=== PATIENT | male | born 1940 | race Caucasian/White ===

== ENCOUNTER 2019-12-28 08:21 | Inpatient (IN) | payer MEDICARE, OTHER ==
[~2019-12-28] VITALS: Ht 185.4 cm; Wt 117.8 kg
[2019-12-28 10:25] LABS: BASOPHILS ABSOLUTE AUTO 0.01 K/mm3 (0.00-0.23); BASOPHILS PERCENT AUTO 0 % (0-2); EOSINOPHILS PERCENT AUTO 0 % (0-6); Hematocrit 35.1 % (37.0-53.0); Hemoglobin 11.8 g/dL (13.5-17.5); IMMATURE GRAN ABSOLUTE AUTO 0.03 K/mm3 (0.00-0.10); IMMATURE GRAN PERCENT AUTO 0 % (0-1); LYMPHOCYTES ABSOLUTE AUTO 1.07 K/mm3 (0.84-5.20); LYMPHOCYTES PERCENT AUTO 14 % (21-46); MONOCYTES ABSOLUTE AUTO 0.37 K/mm3 (0.16-1.47); MONOCYTES PERCENT AUTO 5 % (4-13); Mean Corpuscular HGB 32.2 pg (26.0-34.0); Mean Corpuscular HGB Conc 33.6 g/dL (31.5-36.5); Mean Corpuscular Volume 96 fL (80-100); Mean Platelet Volume 9.6 fL (9.1-12.4); NEUTROPHILS ABSOLUTE AUTO 6.12 K/mm3 (1.96-9.15); NEUTROPHILS PERCENT AUTO 81 % (41-73); Platelet Count 128 K/mm3 (150-400); RDW Coefficient Variation 12.8 % (11.7-14.2); RDW Standard Deviation 45.3 fL (35.1-46.3); Red Blood Cell Count 3.67 M/mm3 (4.30-5.90)
[2019-12-28 10:35] LABS: Source, Urine Voided
[2019-12-28 10:44] LABS: Alanine Aminotransfer (ALT/SGP 24 U/L (12-78); Albumin, Blood 3.2 g/dL (3.4-5.0); Albumin/Globulin Ratio 0.9 (0.8-1.8); Alk Phos 43 U/L (50-136); Anion Gap 6 mmol/L (6-16); Aspartate Aminotrans (AST/SGOT 41 U/L (12-37); Bilirubin, Total 0.3 mg/dL (0.1-1.0); Blood Urea Nitrogen 18 mg/dL (8-24); Bun/Creatinine Ratio 15.5 (12.0-20.0); CO2, Blood 28 mmol/L (21-32); Chloride, Blood 99 mmol/L (98-108); Creatinine, Blood 1.16 mg/dL (0.60-1.20); Globulin, Blood 3.6 g/dL (2.2-4.0); Glomerular Filtration Rate >60 (60-); Glucose, Blood 259 mg/dL (70-99); Potassium, Blood 4.3 mmol/L (3.5-5.5); Sodium, Blood 133 mmol/L (136-145); Total Protein, Blood 6.8 g/dL (6.4-8.2)
[2019-12-28 10:50] LABS: Appearance, Urine Clear (Clear); Bilirubin, Urine Neg (Neg); Blood, Urine 4+ (Neg); Color, Urine Yellow (P-Yellow); Glucose Qualitative, Urine 2+ (Neg); Ketones, Urine 1+ (Neg); Leukocyte Esterase, Urine 2+ (Neg); Nitrite, Urine Neg (Neg); Protein, Urine 2+ (Neg); Urobilinogen, Urine NORM (Normal)
[2019-12-28 11:10] LABS: Bacteria Mod /hpf; Squamous Epithelial Cells Rare /hpf (Few)
[2019-12-28] MEDS ORDERED: CLOP75 PO (12:48)
[2019-12-28] MEDS ORDERED: Isosorbide Mono30 MG PO (12:48)
[2019-12-28] MEDS ORDERED: METO50ER PO (12:48)
[2019-12-28] MEDS ORDERED: BENA20 PO (12:48)
[2019-12-28] MEDS ORDERED: SPIR25 PO (12:48)
[2019-12-28] MEDS ORDERED: Aspirin EC81 MG PO (17:04)
[2019-12-28] MEDS ORDERED: Novolog100 UNIT/1 SC (17:05)
[2019-12-28] MEDS ORDERED: ATOR40TA PO (17:05)
[2019-12-28] MEDS ORDERED: TRESIBA100 UNIT/1 SC (17:07)
--- NOTE | 2019-12-28 22:35 | NUR ---
ASSUMED CARE NOTE: ASSUMED CARE OF PT @ 2235, RECEVIED REPORT FROM [facility] L[facility] FROM [facility]. PT IS CURRENLTY ON 2L OF O2 VIA NC, WITH SPO2 ABOVE 90%. PT'S RR IS BETWEEN 35-40 BPM. PT STATES HE IS SOB. PT IS DIAPHORETIC. BLANKETS TAKEN OFF, FAN PLACED AT BED SIDE. NEW IV ACCESS INITIATED. PT IS IN ST WITH BBB, HR @ 114. PT IS HYPERTENSIVE. LUNG SOUNDS DIMINISHED T/O. PT IS CONFUSED AND GRABBING @ LINES/CORDS, AND ROLLS AROUND IN BED. IS UNABLE TO FOLLOW DIRECTIONS WELL. BED AT LOWEST LEVEL, BED ALARM ON, CALL LIGHT WITHIN REACH.
[2019-12-28 23:28] LABS: BASOPHILS ABSOLUTE AUTO 0.03 K/mm3 (0.00-0.23); BASOPHILS PERCENT AUTO 0 % (0-2); EOSINOPHILS PERCENT AUTO 0 % (0-6); Hemoglobin 11.3 g/dL (13.5-17.5); IMMATURE GRAN ABSOLUTE AUTO 0.08 K/mm3 (0.00-0.10); IMMATURE GRAN PERCENT AUTO 1 % (0-1); LYMPHOCYTES ABSOLUTE AUTO 1.95 K/mm3 (0.84-5.20); LYMPHOCYTES PERCENT AUTO 19 % (21-46); MONOCYTES ABSOLUTE AUTO 0.73 K/mm3 (0.16-1.47); MONOCYTES PERCENT AUTO 7 % (4-13); Mean Corpuscular HGB 31.4 pg (26.0-34.0); Mean Corpuscular HGB Conc 33.2 g/dL (31.5-36.5); Mean Corpuscular Volume 94 fL (80-100); NEUTROPHILS ABSOLUTE AUTO 7.74 K/mm3 (1.96-9.15); NEUTROPHILS PERCENT AUTO 74 % (41-73); Platelet Count 123 K/mm3 (150-400); RDW Coefficient Variation 12.8 % (11.7-14.2); RDW Standard Deviation 44.4 fL (35.1-46.3); White Blood Cell Count 10.53 K/mm3 (4.00-11.30)
[2019-12-28 23:35] LABS: Anion Gap 7 mmol/L (6-16); Blood Urea Nitrogen 21 mg/dL (8-24); Bun/Creatinine Ratio 17.8 (12.0-20.0); CO2, Blood 25 mmol/L (21-32); Calcium, Blood 7.5 mg/dL (8.5-10.1); Chloride, Blood 102 mmol/L (98-108); Creatinine, Blood 1.18 mg/dL (0.60-1.20); Glomerular Filtration Rate >60 (60-); Glucose, Blood 193 mg/dL (70-99); Potassium, Blood 4.9 mmol/L (3.5-5.5); Sodium, Blood 134 mmol/L (136-145)
--- NOTE | 2019-12-28 23:40 | NUR ---
NOTIFIED DR BANGURA OF CRITICAL LACTIC ACID OF 2.9, TEMP 101.4, BNP 565. INFORMED DR THAT BOLUS WAS STOPPED AT 250 MLS D/T ELEVATED BNP, AND INCREASED RESPIRATORY RATE 44. DR GAVE NEW ORDERS TO FOLLOW SEPSIS PROTOCOL WITH 3 LITER BOLUSES OF NS AND THEN MAINTENANCE RATE OF 150 MLS/HR.
--- NOTE | 2019-12-29 00:29 | NUR ---
TRANSFER NOTE CALLED RAPID RESPONSE DUE TO TACHYCARDIA, TACHYPNEA, AND AMS. ULTIMATELY THE DECISION WAS MADE TO TRANSFER THIS PT TO ICU 8. REPORT GIVEN TO ICU NURSE JAKE.
--- NOTE | 2019-12-29 00:45 | NUR ---
UPDATE: CALLED , REGARDING INCREASED NEED FOR OXYGEN, 10L OF O2 VIA OXYMIXER, SPO2 90%. EXP WHEEZE HEARD BILAT. ORDERS GIVEN FOR 40MG LASIX IV, AND TO STOP IV FLUIDS. ORDERS ALSO GIVEN TO INITIATE CPAP.
--- NOTE | 2019-12-29 01:44 | NUR ---
CHARGE NURSE CALLED TITO REGARDING PT'S INTOLERANCE TO CPAP. PT IS PULLING AT LINES, ATTEMPTING TO GET OUT OF BED AND REFUSING TO WEAR OXYMIZER. SPO2 SLOWING DECLINING. ORDERS GIVEN TO PLACE PT ON PRECEDEX. ONCE INTIATED WILL RESTART CPAP, OR POSSIBLE BIPAP. BED AT LOWEST LEVEL, BED ALARM ON.
--- NOTE | 2019-12-29 03:10 | NUR ---
UPDATE: PT HAS AN ELEVATED TEMP, ACETAMINOPHEN GIVEN PRN. PT NOW HAS A ISRAEL DRAINING CLEAR YELLOW URINE. PT DID NOT TOLERATE CPAP MACHINE, OXYMIZER ON 5L OF O2 SPO2 ABOVE 90%. PT CONTINUES TO ATTEMPT TO GET OUT OF BED. MAY HAVE TO USE MANDY VEST TO PREVENT INJURY.
[2019-12-29 03:14] LABS: BASOPHILS ABSOLUTE AUTO 0.01 K/mm3 (0.00-0.23); BASOPHILS PERCENT AUTO 0 % (0-2); EOSINOPHILS PERCENT AUTO 0 % (0-6); Hematocrit 31.9 % (37.0-53.0); Hemoglobin 10.8 g/dL (13.5-17.5); IMMATURE GRAN ABSOLUTE AUTO 0.04 K/mm3 (0.00-0.10); IMMATURE GRAN PERCENT AUTO 1 % (0-1); LYMPHOCYTES ABSOLUTE AUTO 0.79 K/mm3 (0.84-5.20); LYMPHOCYTES PERCENT AUTO 10 % (21-46); MONOCYTES ABSOLUTE AUTO 0.57 K/mm3 (0.16-1.47); MONOCYTES PERCENT AUTO 7 % (4-13); Mean Corpuscular HGB 32.2 pg (26.0-34.0); Mean Corpuscular HGB Conc 33.9 g/dL (31.5-36.5); Mean Corpuscular Volume 95 fL (80-100); NEUTROPHILS ABSOLUTE AUTO 6.66 K/mm3 (1.96-9.15); NEUTROPHILS PERCENT AUTO 83 % (41-73); Platelet Count 111 K/mm3 (150-400); RDW Coefficient Variation 12.6 % (11.7-14.2); RDW Standard Deviation 44.1 fL (35.1-46.3); Red Blood Cell Count 3.35 M/mm3 (4.30-5.90); White Blood Cell Count 8.07 K/mm3 (4.00-11.30)
[2019-12-29 03:25] LABS: Source, Urine Catheter
[2019-12-29 03:29] LABS: Bilirubin, Urine Neg (Neg); Blood, Urine Neg (Neg); Glucose Qualitative, Urine Neg (Neg); Ketones, Urine Neg (Neg); Leukocyte Esterase, Urine Neg (Neg); Nitrite, Urine Neg (Neg); Protein, Urine Neg (Neg); Urobilinogen, Urine NORM (Normal)
[2019-12-29 03:30] LABS: Albumin, Blood 2.8 g/dL (3.4-5.0); Albumin/Globulin Ratio 0.8 (0.8-1.8); Bilirubin, Total 0.4 mg/dL (0.1-1.0); Bun/Creatinine Ratio 17.2 (12.0-20.0); Calcium, Blood 7.3 mg/dL (8.5-10.1); Creatinine, Blood 1.28 mg/dL (0.60-1.20); Globulin, Blood 3.5 g/dL (2.2-4.0); Potassium, Blood 4.3 mmol/L (3.5-5.5); Total Protein, Blood 6.3 g/dL (6.4-8.2)
[2019-12-29 03:31] LABS: Appearance, Urine Clear (Clear); Color, Urine Pale Yellow (P-Yellow)
--- NOTE | 2019-12-29 04:07 | NUR ---
UPDATE: PRECEDEX TURNED DOWN TO 0.2MCG/KG/HR, DUE TO LOW BLOOD PRESSURE.
--- NOTE | 2019-12-29 05:11 | NUR ---
SHIFT SUMMARY: SEE PREVIOUS NOTES. PT REMAINS ALERT AND ORIENTED TO SELF. PT IS CONFUSED AND ON 0.2MCG/KG/HR OF PRECEDEX DUE TO CPAP/OXYMIZER INTOLERANCE. PT HAS BEEN ABLE TO KEEP MASK ON WITHOUT DIFFICULTY. SPO2 ABOVE 92%. LUNG SOUNDS DIM T/O. LEFT BBB NOTED HR IN THE 80'S. TEMP DECREASED TO 99.1, FAN STILL IN PLACE. ISRAEL PATNET DRAINING CLEAR YELLOW URINE. WAS UNABLE TO REACH FAMILY FOR MORE INFORMATION ON HOME STAUS. WILL PASS ON TO DAY SHIFT. WILL CONTIUNE TO MONITOR PT UNTIL REPORT IS GIVEN TO ONCOMING SHIFT.
--- NOTE | 2019-12-29 06:37 | NUR ---
CHARGE NURSE SPOKE TO PARTNER JOSE R. THEY HAVE BEEN TOGETHER FOR 9 YEARS, SHE IS THE MAIN CAREGIVER. SHE STATES THAT THE PATIENT WISHES TO BE DNR. STATING THAT [facility] HAS A COPY. ATTEMPTED TO CALL [facility] MEDICAL RECORDS. THEY NEED A SIGNED CONSENT OF RELEASE. JOSE R (PARTNER) STATED THAT THE PATINET HAS BEEN GETTING MORE CONFUSED OVER THE PAST WEEK. SHE WAS ENCOURAGED TO COME IN AND ANSWER QUESTIONS.
--- NOTE | 2019-12-29 08:15 | NUR ---
ASSUMED CARE: REPORT RECEIVED FROM BO Wheatley RN. ASSUMED CARE OF THIS PT AT APPROX 0700. ON ASSESSMENT, THE PT IS AWAKE, A&O. HE IS ANSWERING QUESTIONS & FOLLOWING DIRECTION APPROPRIATELY. LS ARE DIM T/O, PT CURRENTLY WEARING CPAP W/ O2 SATS > 92%. MONITOR SHOWS SR W/ HR 80s & OCC PVCs, BP W/ SLIGHT HYPOTENSION. PT HAS NO GI COMPLAINTS, STS HAVING NO APPETITE. TEMP ISRAEL PATENT/ DRAINING CLEAR YELLOW URINE. SKIN OVERALL CDI. WILL CONTINUE TO MONITOR & UPDATE NEEDED.
--- NOTE | 2019-12-29 09:00 | NUR ---
DR ARAYA: PROVIDER AT BEDSIDE TO SIN PT. WOULD LIKE CPAP REMOVED TO SEE HOW PT TOLERATES. PT PLACED ON 1OL OXYMIZER W/ O2 SATS > 92%, GOAL PER PROVIDER IS O2 SATS > 88%, TITRATE O2 DOWN PT TOLERATES. PT's SIGNIFICANT OTHER HAS EXPRESSED THAT PT IS DNR STATUS, PT IS AGREEABLE TO THIS & PROVIDER STS OKAY TO PLACE DNR ORDERS. PLAN FOR ECHO & F/U CXR THIS AM ALSO. WILL CONTINUE TO MONITOR & UPDATE NEEDED.
--- NOTE | 2019-12-29 11:58 | NUR ---
Echocardiogram using 0.60ml of Definity contrast performed.
--- NOTE | 2019-12-29 12:52 | NUR ---
CHANGE IN CONDITION: SHORTLY AFTER RECEIVING CONTRAST DURING ECHOCARDIOGRAM, PT BEGAN WHEEZING & HAVING C/O INCREASED SOB. HE REMAINED A&O x4 DURING THIS TIME. PT STATED HE WOULD LIKE TO EAT BEFORE PUTTING THE CPAP MASK ON, O2 SATS > 90% DURING THIS PERIOD OF TIME. PT SAT UPRIGHT IN BED & MEAL TRAY SET UP FOR HIM, THIS RN LEFT ROOM W/ PT SITTING UP & EATING MEAL. CALL FROM QI Higgins RT, REQUESTS THAT THIS RN COME TO PT's ROOM RIGHT AWAY. ON ENTERING THE ROOM, THE PT IS VISIBLY SHAKING & CORE TEMP IS INCREASED TO 102.2, PT IS NOW CONFUSED & PULLING AT LINES/ CORDS. O2 SATS DECREASED TO 87% DURING THIS TIME & SBP UP TO 190. ATTEMPTED TO PLACE CPAP AT PRIOR SETTINGS, PT NOT TOLERATING WELL & WILL NOT LEAVE CPAP IN PLACE. PRECEDEX RESTARTED & TITRATION DOC IN FLOWSHEET. BIPAP NOW AT BEDSIDE & INITIATED W/ SETTINGS 12/6 & 25% FIO2. PT CONTINUES PULLING AT MASK & TAKES APPROX 30 MINS TO SETTLE & TOLERATE BIPAP THERAPY. HE IS NOW RESTING QUIETLY. WILL CONTINUE TO MONITOR & UPDATE NEEDED.
--- NOTE | 2019-12-29 18:40 | NUR ---
SHIFT SUMMARY: SINCE PRIOR UPDATE PT IS NOW ONCE AGAIN A&O & TAKING BREAK FROM BIPAP. PRECEDEX DRIP CONTINUES. PT ON 10L HI-FLOW NC W/ O2 SATS > 90%. MONITOR SHOWS SR W/ BBB, HR 80-100s. NO GI COMPLAINTS, TEMP ISRAEL PATENT/ DRAINING, CORE TEMP IMPROVED SOMEWHAT. WILL CONTINUE TO MONITOR & UPDATE NEEDED.
--- NOTE | 2019-12-29 19:30 | NUR ---
ASSUMED CARE NOTE: ASSUMED CARE OF PT AT 1900, RECEVIED REPORT FROM TC VERMA. PT IS ALERT AND ORIENTEDX3. PT IS ABLE TO FOLLOW DIRECTIONS. PT ON 8L OF O2 VIA HIGH-FLOW NC WITH SPO2 ABOVE 90%. PT DENIES ANY SOB AT THIS TIME. PT ALSO DENIES PAIN. TEMP RUNNING @ 101.4, WILL GIVE PRN ACETAMINOPHEN. PT IS DIAPHORETIC, FAN ON IN ROOM. PT IS ON 0.2MCG/KG/HR OF PRECEDEX. SINUS RHYTHM WITH BBB HR IN THE 80'S. ISRAEL PATNET DRAINING CLEAR YELLOW URINE. WILL CONTINUE TO MONITOR PT T/O SHIFT. BED AT LOWEST LEVEL, CALL LIGHT WITHIN REACH.
[2019-12-29 19:53] LABS: Adenovirus Not Detected (NOT DETECT); Bordetella pertussis Not Detected (NOT DETECT); Chlamydophila pneumoniae Not Detected (NOT DETECT); Coronavirus 229E Not Detected (NOT DETECT); Coronavirus HKU1 Not Detected (NOT DETECT); Coronavirus NL63 Not Detected (NOT DETECT); Coronavirus OC43 Not Detected (NOT DETECT); Human Metapneumovirus Not Detected (NOT DETECT); Human Rhinovirus/Enterovirus Not Detected (NOT DETECT); Influenza A Not Detected (NOT DETECT); Influenza A/2009-H1 Not Detected (NOT DETECT); Influenza A/H1 Not Detected (NOT DETECT); Influenza A/H3 Not Detected (NOT DETECT); Influenza B Not Detected (NOT DETECT); Mycoplasma pneumoniae Not Detected (NOT DETECT); Parainfluenza Virus 1 Not Detected (NOT DETECT); Parainfluenza Virus 2 Not Detected (NOT DETECT); Parainfluenza Virus 3 Not Detected (NOT DETECT); Parainfluenza Virus 4 Not Detected (NOT DETECT); Respiratory Syncytial Virus Not Detected (NOT DETECT)
[2019-12-29 23:04] LABS: U Amphetamine Screen Not Detected; U Barbituate Screen Not Detected; U Benzodiazapine Screen Not Detected; U Buprenorphine Screen Not Detected; U Cannabinoids Screen Not Detected; U Cocaine Screen Not Detected; U Methadone Screen Not Detected; U Methamphetamine Screen Not Detected; U Opiates Screen Not Detected; U Oxycodone Screen Not Detected; U Propoxyphene Screen Not Detected
--- NOTE | 2019-12-30 02:30 | NUR ---
PRECEDEX ON SB DUE TO LOW BLOOD PRESSURE.
--- NOTE | 2019-12-30 06:32 | NUR ---
SHIFT SUMMARY: NO SIGNIFICANT CHANGES THIS SHIFT. PT REMAINS ALERT AND ORIENTEDX3, IS ABLE TO FOLLOW DIRECTIONS. PRECEDEX 0.2MCG/KG/HR HAS BEEN OFF SINCE 229, DUE TO LOW BP. PT WAS ABLE TO TOLERATE BIPAP T/O THE NIGHT, WITHOUT DIFFICULTIES. PT HAD A TEMP AT THE START OF SHIFT, WHICH RESOLVED WITH PRN ACETAMINOPHEN. PT CONTIUNES TO BE IN SR WITH BBB, HR IN THE 70'S. PT NEEDED TO BE ENCOURAGED TO TURN SELF, DURING THE NIGHT. BED AT LOWEST LEVEL, CALL LIGHT WITHIN REACH. WILL CONTINUE TO MONITOR PT UNTIL REPORT IS GIVEN TO ONCOMING SHIFT.
--- NOTE | 2019-12-30 08:00 | NUR ---
PT ASSESMENT PT ALERT AND ORIENT, VERY PLEASNT AND INTERACTIVE. DENIES POAIN FOLLOWS ALL COMMANDS AND MORALES. DECREASED NC TO 4L/MIN, WILL CONT TO WEAN O2 SATS ARE IN THE MID TO HIGH 90S. CLEAR AND DIM BILAT. TOLERATING PO INTAKE. DECLINED AM SS BUT VERY GOOD APPETITE. ROUND SOFT NON TENDER OBESE ABD. NO BM. UO ADEQUATE VIA ISRAEL CLEAR AND YELLOW OUTPUT. WILL CONT TO MONITOR
--- NOTE | 2019-12-30 16:00 | NUR ---
PT UPDATE PT REMAINS IN CHAIR, CALM AND COOPREATIVE AND DENIES PAIN. VSS, RA WITH SATS WNL, GOOD APPETITE, HYPERGLYCEMIC WITH MD ALBERTO AWARE. NO BM. UO ADEQUATE.
--- NOTE | 2019-12-30 19:01 | NUR ---
Initial spiritual care note: Each time I passed Mr. Rudolph's room, he motioned for me to enter. He became tearful when speaking about his past and his time in the . He has some deep emotional scars from this period in his life. He appeared to appreciate being heard and affirmed. He expressed great love for his . He is estranged from his children. Mr. Rudolph prides himself on his strength and independance. Remaining self-sufficient is a priority. He is not christian, but we had an easy rapport. I will remain available.
--- NOTE | 2019-12-30 19:30 | NUR ---
ASSUMED PT CARE FROM LUCI SALAZAR BEDSIDE REPORT GIVEN. PT UP IN CHAIR. ALERT AND ORIENTED AND ABLE TO MAKE NEEDS KNOWN. ISRAEL CATHETER PATENT AND DRAINING TO GRAVITY. PLANS ARE TO DISCHARGE HOME IN THE AM. PT HAS NO QUESTIONS OR CONCERNS AT THIS TIME. VERY PLEASANT AND COOPERATIVE WITH CARES.
--- NOTE | 2019-12-31 05:32 | NUR ---
END OF SHIFT SUMMARY NO SIGNIFICANT EVENTS T/O NIGHT. PT HAS BEEN PLEASANT AND COOPERATIVE WITH CARES. REQUESTED A MELATONIN AT 0430 D/T NOT BEING ABLE TO SLEEP AND HAVING "FLASHBACKS FROM [place]." PT RECEIVED 3MG OF MELATONIN PER DR. FRANCIS ORDER. PT DOESN'T ASK FOR MUCH AND IS ENCOURAGED TO MAKE HIS NEEDS KNOWN. PT CONCERNED ABOUT DISCHARGING HOME HE IS NOT UP AND WALKING LIKE HE WAS PRIOR TO COMING TO THE HOSPITAL. PT ENCOURAGED TO CONTINUE WORKING WITH PT/OT AND CONTINUE WALKING MUCH HE CAN TOLERATE TO STRENGTHEN HIS LEGS. PT STATES HE NEEDS A WALKER UPON DISCHARGE AND THAT HIS SPOUSE CAN PICK IT UP FOR HIM, BUT HE MAY NEED AN ORDER FOR ONE. WILL PASS ALONG TO DAY RN. WILL CONTINUE TO MONITOR UNTIL REPORT IS HANDED OFF TO DAY SHIFT RN.
--- NOTE | 2019-12-31 11:50 | NUR ---
PT ASSESMENT PT ALERT AND ORIENT, VERY PLEASNT AND INTERACTIVE. DENIES PAIN FOLLOWS ALL COMMANDS AND MORALES. RA SATS ARE IN THE MID TO HIGH 90S. CLEAR AND DIM BILAT. TOLERATING PO INTAKE. BLOOD SUGARS REMAINS ELEVATED AND MD AWARE, WILL ALTER INSULIN ADMIN DOSES, ABD ROUND SOFT NON TENDER OBESE. NO BM. UO ADEQUATE VIA ISRAEL, WILL D/C TODAY WILL CONT TO MONITOR
--- NOTE | 2019-12-31 16:12 | NUR ---
RECEIVED REPORT FROM RETREAD SUPERVISOR. PT RECEIVED TO ROOM AT 1550. PT LOYD A/O. TALKATIVE. SETTLED TO BED. CALL LITE IN REACH, BED IN LOW POSITION, CALL LITE IN REACH, CALLS APPROP
--- NOTE | 2019-12-31 16:39 | NUR ---
PT HAS BEEN PLEASANT SINCE ADMIT. NO C/O PAIN. WATCHING TV. TALKATIVE. NO OTHER CONCERNS AT THIS TIME. BED IN LOW POSITION, CALL LITE IN REACH, CALLS APPROP
--- NOTE | 2020-01-01 06:51 | NUR ---
SHIFT SUMMARY: BRISSA RESTED COMFORTABLY FOR THE MAJORITY OF THE NIGHT. HE DID GET UP TWICE DURING THE NIGHT AND WANTED TO WALK AROUND THE ROOM WITH HIS WALKER. HE WAS ENCOURAGED TO CALL STAFF BEFORE GETTING UP, BUT STATED THAT HE DID NOT NEED ANY HELP. HE WAS EDUCATED ON THE IMPORTANCE OF SAFETY. HE IS ABLE TO MAKE HIS NEEDS KNOWN, ALERT AND ORIENTED. HE IS ANXIOUS TO GO HOME. HE IS VERY CONCERNED ABOUT GETTING A LIST OF MEDICATIONS THAT HE HAS HAD DURING HIS HOSPITAL STAY. HE IS ALSO ASKING ABOUT THE PRESCRIPTION FOR THE FWW FOR HOME USE. HE AMBULATED WITH THE WALKER WITHOUT DIFFICULTY. HE IS TOLERATING PO INTAKE WELL. ISRAEL IN PLACE DRAINING YELLOW URINE, BAG OFF OF FLOOR. HE USES HIS CALL LIGHT APPROPRIATELY. WILL REPORT TO DAY SHIFT RN.
--- NOTE | 2020-01-01 07:15 | NUR ---
bedside report from previous RN Kenia, pt lying in bed, a/0 x 4, pleasant/cooperative, bed in lowest position, call light within reach, bed rails up x 2
--- NOTE | 2020-01-01 09:22 | NUR ---
OT IN WITH PATIENT
[2020-01-01] MEDS ORDERED: ALBU90OI INH (12:22)
[2020-01-01] MEDS ORDERED: AZIT250 PO (12:22)
[2020-01-01] MEDS ORDERED: ALBU2.5V5 (12:23)
[2020-01-01] MEDS ORDERED: Prednisone10 MG PO (12:23)
[2020-01-01] MEDS ORDERED: AIRDUO RESPICL1 EAC3 (12:25)
--- NOTE | 2020-01-01 14:44 | NUR ---
peripheral IV removed WNL. pt's here for transfer home. Pt and indicate understanding of discharge instructions, printed materials provided in discharge packet. pt's prescriptions faxed to [facility] approx [phone]. pt's transported pt's belongings to awaiting vehicle. pt transferred to vehicle via wheelchair
== END 2020-01-01 14:40 | disposition home or self-care (01) | DRG 871 ==
LOC: ER 08:21 → ICUE 17:33 → SURS 17:33 → MEDS 19:50 → ICUE 23:34 → SURS 12-31 15:45
PROVIDERS: Emergency Medicine; Hospitalist; Internal Medicine; Nurse Practitioner Acute Care; ADMIT Internal Medicine
DX: A41.9 Sepsis, unspecified organism (principal); J96.01 Acute respiratory failure with hypoxia; I21.A1 Myocardial infarction type 2; N39.0 Urinary tract infection, site not specified; J44.1 Chronic obstructive pulmonary disease with (acute) exacerbation; I50.22 Chronic systolic (congestive) heart failure; D64.9 Anemia, unspecified; D69.6 Thrombocytopenia, unspecified; E11.9 Type 2 diabetes mellitus without complications; I25.10 Atherosclerotic heart disease of native coronary artery without angina pectoris; R65.20 Severe sepsis without septic shock; I11.0 Hypertensive heart disease with heart failure; Z79.4 Long term (current) use of insulin
CPT/HCPCS: 0099U; 36415; 51702; 71045; 74177; 80048; 80053; 81001; 81003; 82947; 83036; 83605; 83735; 83880; 84484; 85025; 87040; 87086; 93005; 93010; 94640; 94660; 96361; 96365-59; 96366; 96367; 96375; 97110; 97116; 97162; 97165; 97530; 97535; 99285-25; A9270; A9270-GY; C8929; J0456; J0696; J1200; J1650; J1940; J2930; J3475; J7030; J7050; J7512; Q9957; Q9967

== ENCOUNTER 2023-12-29 12:29 | Inpatient (IN) | payer MEDICARE ==
[~2023-12-29] VITALS: Ht 188 cm; Wt 102.4 kg
[~2023-12-29 12:29] MED LIST: AIRDUO RESPICL1 EAC3; ALBU2.5V5; ALBU90OI INH; ATOR40TA PO; AZIT250 PO; Aspirin EC81 MG PO; BENA20 PO; CLOP75 PO; Isosorbide Mono30 MG PO; METO50ER PO; Novolog100 UNIT/1 SC; Prednisone10 MG PO; SPIR25 PO; TRESIBA100 UNIT/1 SC
[2023-12-29] MEDS ORDERED: Ondansetron HCl 2 MG / ML 2ML Vial ONE (13:22)
[2023-12-29 13:23] LABS: BASOPHILS ABSOLUTE AUTO 0.04 K/mm3 (0.00-0.23); BASOPHILS PERCENT AUTO 0 % (0-2); EOSINOPHILS ABSOLUTE AUTO 0.04 K/mm3 (0.00-0.68); EOSINOPHILS PERCENT AUTO 0 % (0-6); Hematocrit 38.9 % (37.0-53.0); Hemoglobin 13.4 g/dL (13.5-17.5); IMMATURE GRAN ABSOLUTE AUTO 0.07 K/mm3 (0.00-0.10); IMMATURE GRAN PERCENT AUTO 1 % (0-1); LYMPHOCYTES ABSOLUTE AUTO 1.55 K/mm3 (0.84-5.20); LYMPHOCYTES PERCENT AUTO 13 % (21-46); MONOCYTES ABSOLUTE AUTO 0.82 K/mm3 (0.16-1.47); MONOCYTES PERCENT AUTO 7 % (4-13); Mean Corpuscular HGB 31.3 pg (26.0-34.0); Mean Corpuscular HGB Conc 34.4 g/dL (31.5-36.5); Mean Corpuscular Volume 91 fL (80-100); Mean Platelet Volume 10.4 fL (9.1-12.4); NEUTROPHILS ABSOLUTE AUTO 9.87 K/mm3 (1.96-9.15); NEUTROPHILS PERCENT AUTO 80 % (41-73); Platelet Count 155 K/mm3 (150-400); RDW Coefficient Variation 13.3 % (11.7-14.2); RDW Standard Deviation 44.3 fL (35.1-46.3); Red Blood Cell Count 4.28 M/mm3 (4.30-5.90); White Blood Cell Count 12.39 K/mm3 (4.00-11.30)
[2023-12-29 13:28] LABS: Albumin, Blood 3.3 g/dL (3.4-5.0); Bilirubin, Total 0.6 mg/dL (0.1-1.0); Bun/Creatinine Ratio 22.2 (12.0-20.0); Calcium, Blood 8.5 mg/dL (8.5-10.1); Creatinine, Blood 1.94 mg/dL (0.60-1.20); Globulin, Blood 3.4 g/dL (2.2-4.0); Potassium, Blood 3.5 mmol/L (3.5-5.5); Total Protein, Blood 6.7 g/dL (6.4-8.2)
[2023-12-29] MEDS ORDERED: Ondansetron HCl 2 MG / ML 2ML Vial IV ONE (13:35)
[2023-12-29 13:51] LABS: International Normalized Ratio 1.08; Prothrombin Time Results 11.3 Sec (9.7-11.5)
[2023-12-29 15:20] LABS: Source, Urine Clean Catch
[2023-12-29 15:44] LABS: Appearance, Urine Hazy (Clear); Bilirubin, Urine Neg (Neg); Blood, Urine 5+ (Neg); Color, Urine Yellow (P-Yellow); Glucose Qualitative, Urine 4+ (Neg); Ketones, Urine 1+ (Neg); Leukocyte Esterase, Urine 3+ (Neg); Nitrite, Urine Neg (Neg); Protein, Urine 1+ (Neg); Urobilinogen, Urine NORM (Normal)
[2023-12-29] MEDS ORDERED: FLU VACC QS2023-24(6MOS UP)/PF 60 MCG/0.5 ML SYRINGE IM PRN (15:45)
[2023-12-29] MEDS ORDERED: Acetaminophen 650 MG Supp PR PRN (15:50)
[2023-12-29] MEDS ORDERED: Bisacodyl 10 MG Supp PR PRN (15:50)
[2023-12-29] MEDS ORDERED: Ipratropium/Albuterol SulF 2.5-0.5MG/3 ML Amp INH PRN (15:55)
[2023-12-29] MEDS ORDERED: Ondansetron 4 MG TAB PO PRN (15:55)
[2023-12-29] MEDS ORDERED: Magnesium Hydroxide Conc 10 ML UDC PO PRN (15:55)
[2023-12-29] MEDS ORDERED: TraZODone HCl 50 MG Tab PO PRN (15:55)
[2023-12-29] MEDS ORDERED: NS 500 ML IV ONE (16:00)
[2023-12-29 16:05] LABS: Bacteria Many /hpf; Squamous Epithelial Cells Few /hpf (Few); Transitional Epithelial Cells Rare /hpf (0-Rare); White Blood Cells, Urine 25-50 /hpf (0-5)
[2023-12-29 16:07] LABS: Mucus Light (0-Heavy)
[2023-12-29] MEDS ORDERED: Mometasone/Formoterol MDI 200/5 mcg 13 GM INH SCH (16:15)
[2023-12-29] MEDS ORDERED: CefTRIAXone Sodium 1,000 MG in NS 50 ML IV SCH (16:23)
[2023-12-29] MEDS ORDERED: Insulin Human Lispro 100 Units/ML 3ML Syringe SC SCH (16:30)
[2023-12-29 18:46] VITALS: BP 120/63
[2023-12-29 19:18] VITALS: BP 112/95
[2023-12-29] MEDS ORDERED: Lactobacil 2-S.Thermo-Bifido 1 1 Cap PO SCH (21:00)
[2023-12-29] MEDS ORDERED: Metoprolol Tartrate 25 MG Tab PO SCH (21:00)
[2023-12-30 04:48] LABS: BASOPHILS ABSOLUTE AUTO 0.05 K/mm3 (0.00-0.23); BASOPHILS PERCENT AUTO 1 % (0-2); EOSINOPHILS ABSOLUTE AUTO 0.15 K/mm3 (0.00-0.68); EOSINOPHILS PERCENT AUTO 2 % (0-6); Hematocrit 35.2 % (37.0-53.0); IMMATURE GRAN ABSOLUTE AUTO 0.04 K/mm3 (0.00-0.10); IMMATURE GRAN PERCENT AUTO 1 % (0-1); LYMPHOCYTES ABSOLUTE AUTO 1.75 K/mm3 (0.84-5.20); LYMPHOCYTES PERCENT AUTO 20 % (21-46); MONOCYTES ABSOLUTE AUTO 0.72 K/mm3 (0.16-1.47); MONOCYTES PERCENT AUTO 8 % (4-13); Mean Corpuscular HGB 31.3 pg (26.0-34.0); Mean Corpuscular HGB Conc 34.1 g/dL (31.5-36.5); Mean Corpuscular Volume 92 fL (80-100); Mean Platelet Volume 10.3 fL (9.1-12.4); NEUTROPHILS ABSOLUTE AUTO 6.11 K/mm3 (1.96-9.15); NEUTROPHILS PERCENT AUTO 69 % (41-73); Platelet Count 143 K/mm3 (150-400); RDW Coefficient Variation 13.3 % (11.7-14.2); RDW Standard Deviation 44.8 fL (35.1-46.3); Red Blood Cell Count 3.84 M/mm3 (4.30-5.90); White Blood Cell Count 8.82 K/mm3 (4.00-11.30)
[2023-12-30 05:11] LABS: Albumin, Blood 3.1 g/dL (3.4-5.0); Albumin/Globulin Ratio 1.1 (0.8-1.8); Bilirubin, Total 0.5 mg/dL (0.1-1.0); Bun/Creatinine Ratio 22.1 (12.0-20.0); Calcium, Blood 8.1 mg/dL (8.5-10.1); Creatinine, Blood 1.81 mg/dL (0.60-1.20); Globulin, Blood 2.7 g/dL (2.2-4.0); Potassium, Blood 3.1 mmol/L (3.5-5.5); Total Protein, Blood 5.8 g/dL (6.4-8.2)
[2023-12-30 05:47] VITALS: BP 105/79
[2023-12-30 07:22] VITALS: BP 111/69
[2023-12-30] MEDS ORDERED: NS 500 ML IV ONE ×2 (07:25→16:25)
[2023-12-30] MEDS ORDERED: Atorvastatin 40 MG Tab PO SCH (09:00)
[2023-12-30] MEDS ORDERED: Aspirin 81 MG Chew PO SCH (09:00)
[2023-12-30] MEDS ORDERED: Spironolactone 25 MG Tab PO SCH (09:00)
[2023-12-30] MEDS ORDERED: Famotidine 20 MG Tab PO SCH (09:00)
[2023-12-30] MEDS ORDERED: Spironolactone 12.5 MG TAB PO SCH (09:00)
[2023-12-30] MEDS ORDERED: Enoxaparin 40 MG/0.4 ML SYR SC SCH (09:00)
[2023-12-30] MEDS ORDERED: Clopidogrel Bisulfate 75 MG Tab PO SCH (09:00)
[2023-12-30] MEDS ORDERED: Insulin Glargine-Yfgn 100 Unit/mL 3 ML SYR SC SCH (09:00)
[2023-12-30] MEDS ORDERED: Potassium Chloride 20 MEQ TabCR PO ONE (15:00)
[2023-12-30] MEDS ORDERED: AMIODARONE HCL100 M3 PO (15:17)
[2023-12-30] MEDS ORDERED: ALLO100 PO (15:17)
[2023-12-30] MEDS ORDERED: CALC.25 PO (15:18)
[2023-12-30] MEDS ORDERED: JARDIANCE10 MG PO (15:19)
[2023-12-30] MEDS ORDERED: FINA5 PO (15:20)
[2023-12-30] MEDS ORDERED: FURO20 PO (15:21)
[2023-12-30] MEDS ORDERED: NITR.4SL SL (15:23)
[2023-12-30] MEDS ORDERED: NOVOLOG FL100 UNIT/3 SC (15:24)
[2023-12-30] MEDS ORDERED: MIRALAX17 GM PO (15:24)
[2023-12-30] MEDS ORDERED: POTCHL20ER PO (15:25)
[2023-12-30] MEDS ORDERED: FLOMAX0.4 MG PO (15:26)
[2023-12-30] MEDS ORDERED: OZEMPIC2 MG/0.75 SC (15:26)
[2023-12-30] MEDS ORDERED: XARELTO2.5 M1 PO (15:28)
[2023-12-30] MEDS ORDERED: TRESIBA FL100 UNIT/2 SC (15:31)
[2023-12-30 16:06] VITALS: BP 122/74
--- NOTE | 2023-12-30 18:05 | NUR ---
SHIFT SUMMARY Pt remains A&Ox3 this shift. Denies pain. + orthostatic hypotension noted. Instructed pt to sit at bedside with feet on the ground before getting up. SBA to BSC. Voiding without difficulty. Tolerating meals. ACHS blood sugars covered as ordered. No c/o verbalized. Pain and safety maintained. Will continue to monitor..
[2023-12-30 19:46] VITALS: BP 109/54
[2023-12-30] MEDS ORDERED: Metoprolol Tartrate 25 MG Tab PO SCH (21:00)
[2023-12-31 03:32] VITALS: BP 109/44
[2023-12-31 05:21] LABS: BASOPHILS ABSOLUTE AUTO 0.03 K/mm3 (0.00-0.23); BASOPHILS PERCENT AUTO 1 % (0-2); EOSINOPHILS ABSOLUTE AUTO 0.08 K/mm3 (0.00-0.68); EOSINOPHILS PERCENT AUTO 1 % (0-6); Hematocrit 30.2 % (37.0-53.0); Hemoglobin 10.1 g/dL (13.5-17.5); IMMATURE GRAN ABSOLUTE AUTO 0.04 K/mm3 (0.00-0.10); IMMATURE GRAN PERCENT AUTO 1 % (0-1); LYMPHOCYTES ABSOLUTE AUTO 1.18 K/mm3 (0.84-5.20); LYMPHOCYTES PERCENT AUTO 18 % (21-46); MONOCYTES ABSOLUTE AUTO 0.49 K/mm3 (0.16-1.47); MONOCYTES PERCENT AUTO 7 % (4-13); Mean Corpuscular HGB 31.3 pg (26.0-34.0); Mean Corpuscular HGB Conc 33.4 g/dL (31.5-36.5); Mean Corpuscular Volume 94 fL (80-100); Mean Platelet Volume 10.4 fL (9.1-12.4); NEUTROPHILS ABSOLUTE AUTO 4.81 K/mm3 (1.96-9.15); NEUTROPHILS PERCENT AUTO 73 % (41-73); Platelet Count 117 K/mm3 (150-400); RDW Coefficient Variation 13.2 % (11.7-14.2); RDW Standard Deviation 45.3 fL (35.1-46.3); Red Blood Cell Count 3.23 M/mm3 (4.30-5.90); White Blood Cell Count 6.63 K/mm3 (4.00-11.30)
[2023-12-31 05:36] LABS: Albumin, Blood 2.8 g/dL (3.4-5.0); Bilirubin, Total 0.5 mg/dL (0.1-1.0); Bun/Creatinine Ratio 18.8 (12.0-20.0); Calcium, Blood 8.2 mg/dL (8.5-10.1); Creatinine, Blood 1.6 mg/dL (0.60-1.20); Globulin, Blood 2.7 g/dL (2.2-4.0); Potassium, Blood 3.9 mmol/L (3.5-5.5); Total Protein, Blood 5.5 g/dL (6.4-8.2)
[2023-12-31 07:50] VITALS: BP 120/60
--- NOTE | 2023-12-31 08:21 | NUR ---
SHIFT SUMMARY PT IS A&OX4, PLEASANT AND APPRECIATIVE. VSS ON 2L NC. AV-PACED @ 69 PER TELEMETRY. NO ACUTE CHANGES THIS SHIFT. DENIES PAIN. X1 ASSIST TO BSC. LARGE URINE OUTPUT, NO BM THIS SHIFT. JANNETTE IS HOPING TO GET TO GO HOME TODAY. BED IN LOWEST POSITION, CALL LIGHT WITHIN REACH. BED ALARM SET FOR PT'S SAFETY.
[2023-12-31] MEDS ORDERED: Spironolactone 12.5 MG TAB PO SCH (09:00)
[2023-12-31] MEDS ORDERED: Polyethylene Glycol 3350 17 gm PO PRN (11:25)
[2023-12-31] MEDS ORDERED: NS 1,000 ML IV SCH (12:00)
[2023-12-31 15:08] VITALS: BP 155/65
[2023-12-31 17:01] VITALS: BP 129/68
--- NOTE | 2023-12-31 17:53 | NUR ---
PT IS A/OX4, PLEASANT AND COOPERATIVE. THE PT IS UP WITH MINIMAL ASSIST USEING THE FWW. THIS AM WHEN STANDING THE PT REPORTED HE FELT LIGHT HEADED. ORTHO STATIC VS EWERE TAKEN SEE RECORD. THIS AFTERNOON THE PT TOOK A WALK DOWN THE [place] APROX 200 FT ASSISTED BY MARCO A VERMA AIR CONTROL ELECTRONICS OPERATOR, PT REPORTED NO LIGHTHEADEDNESS AT THAT TIME BP TAKEN POST WALK SEE RECOERD. PT DENIED ANY PAIN, N/V OR SOB T/O THE DAY. CALL LIGHT IN REACH, BED IN THE LOW POSITION
[2023-12-31 19:43] VITALS: BP 116/55
[2024-01-01 04:06] VITALS: BP 117/62
--- NOTE | 2024-01-01 07:50 | NUR ---
SHIFT SUMMARY PT IS A&OX4, FORGETFUL AT TIMES. VSS ON RA, 2L NC WHILE ASLEEP. V-PACED @ 85 PER TELEMETRY. NO ACUTE CHANGES THIS SHIFT. DENIES PAIN. SBA WITH FWW TO BSC. VOIDING ADEQUATE AMOUNTS OF URINE, NO BM THIS SHIFT. LAST BM, CARDIAC CARE UNIT NURSE, PRN BOWEL MEDS GIVEN. BED IN LOWEST POSITION, CALL LIGHT WITHIN REACH. BED ALARM SET FOR PT'S SAFETY.
[2024-01-01 07:53] VITALS: BP 117/58
[2024-01-01] MEDS ORDERED: Tamsulosin HCl 0.4 MG Cap PO SCH (09:00)
[2024-01-01] MEDS ORDERED: Amiodarone HCl 200 MG Tab PO SCH (09:00)
[2024-01-01] MEDS ORDERED: Finasteride 5 MG Tab PO SCH (09:00)
[2024-01-01] MEDS ORDERED: Allopurinol 100 MG Tab PO SCH (09:00)
[2024-01-01] MEDS ORDERED: Empagliflozin 10 MG TAB PO SCH (09:00)
[2024-01-01] MEDS ORDERED: METO25 PO (13:21)
[2024-01-01] MEDS ORDERED: PANT40 PO (13:23)
--- NOTE | 2024-01-01 14:49 | NUR ---
PT DISCHARGED THE PT VERBALIZED UNDERSTANDING OF THE DC INSTRUCTIONS. THE PTS PRESCRIPTIONS WERE FAXED TO [facility] REQUESTED. [facility] REQUESTED BY PRIOR TO DC. THE PT WAS TRANSFERED VIA WHEELCHAIR ACCOMAPANIED BY THE CYANIDE FURNACE OPERATOR AND HIS SO
== END 2024-01-01 13:44 | disposition home or self-care (01) | DRG 312 ==
LOC: ER 12:29 → MEDS 12:30 → ENPENDDIS 01-01 11:45 → MEDS 01-01 13:44
PROVIDERS: Emergency Medicine; ADMIT Hospitalist
PROC: 0RSXXZZ Reposition Left Finger Phalangeal Joint, External Approach (ICD-10-PCS; principal; 2023-12-29)
DX: I95.1 Orthostatic hypotension (principal); I50.22 Chronic systolic (congestive) heart failure; I13.0 Hypertensive heart and chronic kidney disease with heart failure and stage 1 through stage 4 chronic kidney disease, or unspecified chronic kidney disease; N17.9 Acute kidney failure, unspecified; S00.11XA Contusion of right eyelid and periocular area, initial encounter; R04.0 Epistaxis; S63.285A Dislocation of proximal interphalangeal joint of left ring finger, initial encounter; S00.83XA Contusion of other part of head, initial encounter; W18.30XA Fall on same level, unspecified, initial encounter; E11.22 Type 2 diabetes mellitus with diabetic chronic kidney disease; N18.30 Chronic kidney disease, stage 3 unspecified; I25.10 Atherosclerotic heart disease of native coronary artery without angina pectoris; J44.9 Chronic obstructive pulmonary disease, unspecified; I48.0 Paroxysmal atrial fibrillation; N40.0 Benign prostatic hyperplasia without lower urinary tract symptoms; M10.9 Gout, unspecified; E78.5 Hyperlipidemia, unspecified; M24.342 Pathological dislocation of left hand, not elsewhere classified; I25.2 Old myocardial infarction; Z95.5 Presence of coronary angioplasty implant and graft; Z95.0 Presence of cardiac pacemaker; Z79.01 Long term (current) use of anticoagulants; Z79.02 Long term (current) use of antithrombotics/antiplatelets; Z79.82 Long term (current) use of aspirin; Z79.4 Long term (current) use of insulin; Z79.52 Long term (current) use of systemic steroids
CPT/HCPCS: 26770; 36415; 70450; 71045; 73130; 80053; 81001; 82272; 82947; 83735; 85025; 85610; 87086; 93005; 93010; 94640; 94664; 94762; 96365-59; 96366-59; 96372; 96375-59; 97110; 97116; 97161; 97165; 97530; 99285-25; A9270; G0378; J0696; J1650; J1815; J2405; J7030; J7040

== ENCOUNTER 2025-05-20 01:19 | Day surgery (SDC) | payer MEDICARE, OTHER ==
[~2025-05-20 01:19] MED LIST changes: +ALLO100 PO; +AMIODARONE HCL100 M3 PO; +CALC.25 PO; +COLCHICINE0.6 M1 PO; +Coreg6.25 MG PO; +ERTAPENEM1 G1 IV; +Ertapenem Sodium 1,000 MG in NS 50 ML IV SCH; +FINA5 PO; +FLOMAX0.4 MG PO; +FURO20 PO; +JARDIANCE10 MG PO; +METO25 PO; +MIRALAX17 GM PO; +NITR.4SL SL; +NOVOLOG FL100 UNIT/3 SC; +OZEMPIC2 MG/0.75 SC; +PANT40 PO; +POTCHL20ER PO; +TRESIBA FL100 UNIT/2 SC; +UP4 PROBIOTICS1 EAC8 PO; +XARELTO2.5 M1 PO
[2025-05-20 09:50] VITALS: BP 122/63
== END 2025-05-20 10:36 | disposition home or self-care (01) ==
LOC: ATC 01:19
DX: N39.0 Urinary tract infection, site not specified (principal); R78.81 Bacteremia; B96.20 Unspecified Escherichia coli [E. coli] as the cause of diseases classified elsewhere; I25.10 Atherosclerotic heart disease of native coronary artery without angina pectoris; I13.0 Hypertensive heart and chronic kidney disease with heart failure and stage 1 through stage 4 chronic kidney disease, or unspecified chronic kidney disease; E11.22 Type 2 diabetes mellitus with diabetic chronic kidney disease; N18.30 Chronic kidney disease, stage 3 unspecified; I50.22 Chronic systolic (congestive) heart failure; J44.9 Chronic obstructive pulmonary disease, unspecified; N40.0 Benign prostatic hyperplasia without lower urinary tract symptoms; M10.9 Gout, unspecified; K21.9 Gastro-esophageal reflux disease without esophagitis; E66.01 Morbid (severe) obesity due to excess calories; Z16.12 Extended spectrum beta lactamase (ESBL) resistance; Z16.19 Resistance to other specified beta lactam antibiotics; Z79.01 Long term (current) use of anticoagulants; Z79.02 Long term (current) use of antithrombotics/antiplatelets; Z79.4 Long term (current) use of insulin; Z79.84 Long term (current) use of oral hypoglycemic drugs; Z79.899 Other long term (current) drug therapy; Z95.2 Presence of prosthetic heart valve
CPT/HCPCS: 96365; C1751; J1335

== ENCOUNTER 2025-05-21 01:31 | Day surgery (SDC) | payer MEDICARE, OTHER ==
[2025-05-21 10:20] VITALS: BP 155/78
== END 2025-05-21 10:44 | disposition home or self-care (01) ==
LOC: ATC 01:31
DX: N39.0 Urinary tract infection, site not specified (principal); R78.81 Bacteremia; B96.20 Unspecified Escherichia coli [E. coli] as the cause of diseases classified elsewhere; Z16.12 Extended spectrum beta lactamase (ESBL) resistance; I25.10 Atherosclerotic heart disease of native coronary artery without angina pectoris; E66.01 Morbid (severe) obesity due to excess calories; J44.9 Chronic obstructive pulmonary disease, unspecified; I50.20 Unspecified systolic (congestive) heart failure; N18.30 Chronic kidney disease, stage 3 unspecified; K21.9 Gastro-esophageal reflux disease without esophagitis; E11.22 Type 2 diabetes mellitus with diabetic chronic kidney disease; Z79.4 Long term (current) use of insulin; Z79.899 Other long term (current) drug therapy; Z88.8 Allergy status to other drugs, medicaments and biological substances
CPT/HCPCS: 96365; J1335

== ENCOUNTER 2025-05-22 00:58 | Day surgery (SDC) | payer MEDICARE, OTHER ==
[~2025-05-22 00:58] MED LIST changes: -Ertapenem Sodium 1,000 MG in NS 50 ML IV SCH
[2025-05-22] MEDS ORDERED: Ertapenem Sodium 1,000 MG in NS 50 ML IV SCH (01:00)
[2025-05-22 10:18] VITALS: BP 111/76
== END 2025-05-22 10:36 | disposition home or self-care (01) ==
LOC: ATC 00:58
DX: N39.0 Urinary tract infection, site not specified (principal); R78.81 Bacteremia; B96.20 Unspecified Escherichia coli [E. coli] as the cause of diseases classified elsewhere; Z16.12 Extended spectrum beta lactamase (ESBL) resistance; I25.10 Atherosclerotic heart disease of native coronary artery without angina pectoris; I13.0 Hypertensive heart and chronic kidney disease with heart failure and stage 1 through stage 4 chronic kidney disease, or unspecified chronic kidney disease; E11.22 Type 2 diabetes mellitus with diabetic chronic kidney disease; I50.20 Unspecified systolic (congestive) heart failure; N18.30 Chronic kidney disease, stage 3 unspecified; J44.9 Chronic obstructive pulmonary disease, unspecified; K21.9 Gastro-esophageal reflux disease without esophagitis; E66.01 Morbid (severe) obesity due to excess calories; Z79.899 Other long term (current) drug therapy; Z79.4 Long term (current) use of insulin; Z88.8 Allergy status to other drugs, medicaments and biological substances; Z88.5 Allergy status to narcotic agent
CPT/HCPCS: 96365; J1335

== ENCOUNTER 2025-05-23 07:18 | Day surgery (SDC) | payer MEDICARE, OTHER ==
[~2025-05-23 07:18] MED LIST changes: +Ertapenem Sodium 1,000 MG in NS 50 ML IV SCH
[2025-05-23 09:52] VITALS: BP 122/64
== END 2025-05-23 10:06 | disposition home or self-care (01) ==
LOC: ATC 07:18
DX: N39.0 Urinary tract infection, site not specified (principal); R78.81 Bacteremia; B96.20 Unspecified Escherichia coli [E. coli] as the cause of diseases classified elsewhere; I25.10 Atherosclerotic heart disease of native coronary artery without angina pectoris; J44.9 Chronic obstructive pulmonary disease, unspecified; N40.0 Benign prostatic hyperplasia without lower urinary tract symptoms; M10.9 Gout, unspecified; I13.0 Hypertensive heart and chronic kidney disease with heart failure and stage 1 through stage 4 chronic kidney disease, or unspecified chronic kidney disease; E11.22 Type 2 diabetes mellitus with diabetic chronic kidney disease; N18.30 Chronic kidney disease, stage 3 unspecified; I50.22 Chronic systolic (congestive) heart failure; K21.9 Gastro-esophageal reflux disease without esophagitis; Z16.12 Extended spectrum beta lactamase (ESBL) resistance; Z79.01 Long term (current) use of anticoagulants; Z79.02 Long term (current) use of antithrombotics/antiplatelets; Z79.4 Long term (current) use of insulin; Z79.84 Long term (current) use of oral hypoglycemic drugs; Z79.899 Other long term (current) drug therapy; Z88.5 Allergy status to narcotic agent; Z88.8 Allergy status to other drugs, medicaments and biological substances; Z95.2 Presence of prosthetic heart valve
CPT/HCPCS: 96374; J1335

== ENCOUNTER 2025-05-24 00:42 | Day surgery (SDC) | payer MEDICARE, OTHER ==
[~2025-05-24 00:42] MED LIST changes: -Ertapenem Sodium 1,000 MG in NS 50 ML IV SCH
[2025-05-24] MEDS ORDERED: Ertapenem Sodium 1,000 MG in NS 50 ML IV SCH (01:00)
[2025-05-24 09:49] VITALS: BP 109/70
== END 2025-05-24 10:16 | disposition home or self-care (01) ==
LOC: ATC 00:42
DX: R78.81 Bacteremia (principal); Z16.12 Extended spectrum beta lactamase (ESBL) resistance; N39.0 Urinary tract infection, site not specified; I25.10 Atherosclerotic heart disease of native coronary artery without angina pectoris; I50.22 Chronic systolic (congestive) heart failure; I13.0 Hypertensive heart and chronic kidney disease with heart failure and stage 1 through stage 4 chronic kidney disease, or unspecified chronic kidney disease; N18.30 Chronic kidney disease, stage 3 unspecified; M10.9 Gout, unspecified; E11.22 Type 2 diabetes mellitus with diabetic chronic kidney disease; J44.9 Chronic obstructive pulmonary disease, unspecified; G92.8 Other toxic encephalopathy; K21.9 Gastro-esophageal reflux disease without esophagitis; Z79.4 Long term (current) use of insulin; Z79.02 Long term (current) use of antithrombotics/antiplatelets; Z79.85 Long-term (current) use of injectable non-insulin antidiabetic drugs; Z79.899 Other long term (current) drug therapy; Z88.5 Allergy status to narcotic agent; Z88.8 Allergy status to other drugs, medicaments and biological substances
CPT/HCPCS: 96365; J1335

== ENCOUNTER 2025-05-25 00:30 | Day surgery (SDC) | payer MEDICARE, OTHER ==
[2025-05-25] MEDS ORDERED: Ertapenem Sodium 1,000 MG in NS 50 ML IV SCH (01:00)
[2025-05-25 10:26] VITALS: BP 111/64
== END 2025-05-25 10:54 | disposition home or self-care (01) ==
LOC: ATC 00:30
DX: N39.0 Urinary tract infection, site not specified (principal); R78.81 Bacteremia; B96.20 Unspecified Escherichia coli [E. coli] as the cause of diseases classified elsewhere; I13.0 Hypertensive heart and chronic kidney disease with heart failure and stage 1 through stage 4 chronic kidney disease, or unspecified chronic kidney disease; E11.22 Type 2 diabetes mellitus with diabetic chronic kidney disease; N18.30 Chronic kidney disease, stage 3 unspecified; I50.22 Chronic systolic (congestive) heart failure; I25.10 Atherosclerotic heart disease of native coronary artery without angina pectoris; J44.9 Chronic obstructive pulmonary disease, unspecified; N40.0 Benign prostatic hyperplasia without lower urinary tract symptoms; M10.9 Gout, unspecified; M19.90 Unspecified osteoarthritis, unspecified site; K21.9 Gastro-esophageal reflux disease without esophagitis; Z16.12 Extended spectrum beta lactamase (ESBL) resistance; Z79.01 Long term (current) use of anticoagulants; Z79.02 Long term (current) use of antithrombotics/antiplatelets; Z79.4 Long term (current) use of insulin; Z79.84 Long term (current) use of oral hypoglycemic drugs; Z79.899 Other long term (current) drug therapy; Z88.5 Allergy status to narcotic agent; Z88.8 Allergy status to other drugs, medicaments and biological substances; Z95.2 Presence of prosthetic heart valve
CPT/HCPCS: 96365; J1335

== ENCOUNTER 2025-05-26 02:32 | Day surgery (SDC) | payer MEDICARE, OTHER ==
[~2025-05-26 02:32] MED LIST changes: +Ertapenem Sodium 1,000 MG in NS 50 ML IV SCH
[2025-05-26 10:18] VITALS: BP 129/67
== END 2025-05-26 10:37 | disposition home or self-care (01) ==
LOC: ATC 02:32
DX: R78.81 Bacteremia (principal); B96.20 Unspecified Escherichia coli [E. coli] as the cause of diseases classified elsewhere; Z16.12 Extended spectrum beta lactamase (ESBL) resistance; N39.0 Urinary tract infection, site not specified; E11.22 Type 2 diabetes mellitus with diabetic chronic kidney disease; I25.10 Atherosclerotic heart disease of native coronary artery without angina pectoris; I13.0 Hypertensive heart and chronic kidney disease with heart failure and stage 1 through stage 4 chronic kidney disease, or unspecified chronic kidney disease; I50.20 Unspecified systolic (congestive) heart failure; J44.9 Chronic obstructive pulmonary disease, unspecified; N18.30 Chronic kidney disease, stage 3 unspecified; K21.9 Gastro-esophageal reflux disease without esophagitis; G92.8 Other toxic encephalopathy; Z79.899 Other long term (current) drug therapy; Z79.4 Long term (current) use of insulin; Z79.85 Long-term (current) use of injectable non-insulin antidiabetic drugs; Z88.5 Allergy status to narcotic agent; Z88.8 Allergy status to other drugs, medicaments and biological substances
CPT/HCPCS: 96365; J1335

== ENCOUNTER 2025-05-27 02:01 | Day surgery (SDC) | payer MEDICARE, OTHER ==
[2025-05-27 10:14] VITALS: BP 125/62
== END 2025-05-27 10:40 | disposition home or self-care (01) ==
LOC: ATC 02:01
DX: R78.81 Bacteremia (principal); B96.20 Unspecified Escherichia coli [E. coli] as the cause of diseases classified elsewhere; Z16.12 Extended spectrum beta lactamase (ESBL) resistance; N39.0 Urinary tract infection, site not specified; I25.10 Atherosclerotic heart disease of native coronary artery without angina pectoris; J44.9 Chronic obstructive pulmonary disease, unspecified; I50.20 Unspecified systolic (congestive) heart failure; E11.22 Type 2 diabetes mellitus with diabetic chronic kidney disease; N18.30 Chronic kidney disease, stage 3 unspecified; Z79.4 Long term (current) use of insulin; Z88.8 Allergy status to other drugs, medicaments and biological substances; Z88.5 Allergy status to narcotic agent
CPT/HCPCS: 96365; J1335

== ENCOUNTER 2025-05-28 06:27 | Day surgery (SDC) | payer MEDICARE, OTHER ==
[2025-05-28 10:30] VITALS: BP 112/68
== END 2025-05-28 10:48 | disposition home or self-care (01) ==
LOC: ATC 06:27
DX: R78.81 Bacteremia (principal); B96.20 Unspecified Escherichia coli [E. coli] as the cause of diseases classified elsewhere; Z16.12 Extended spectrum beta lactamase (ESBL) resistance; N39.0 Urinary tract infection, site not specified; E11.22 Type 2 diabetes mellitus with diabetic chronic kidney disease; I25.10 Atherosclerotic heart disease of native coronary artery without angina pectoris; I50.22 Chronic systolic (congestive) heart failure; I13.0 Hypertensive heart and chronic kidney disease with heart failure and stage 1 through stage 4 chronic kidney disease, or unspecified chronic kidney disease; N18.30 Chronic kidney disease, stage 3 unspecified; N40.0 Benign prostatic hyperplasia without lower urinary tract symptoms; K21.9 Gastro-esophageal reflux disease without esophagitis; J44.9 Chronic obstructive pulmonary disease, unspecified; G92.8 Other toxic encephalopathy; Z79.4 Long term (current) use of insulin; Z79.02 Long term (current) use of antithrombotics/antiplatelets; Z79.85 Long-term (current) use of injectable non-insulin antidiabetic drugs; Z79.899 Other long term (current) drug therapy; Z88.5 Allergy status to narcotic agent; Z88.8 Allergy status to other drugs, medicaments and biological substances
CPT/HCPCS: 96365; J1335

== ENCOUNTER 2025-05-29 01:20 | Day surgery (SDC) | payer MEDICARE, OTHER ==
[2025-05-29 10:38] VITALS: BP 115/70
== END 2025-05-29 10:56 | disposition home or self-care (01) ==
LOC: ATC 01:20
DX: N39.0 Urinary tract infection, site not specified (principal); R78.81 Bacteremia; B96.20 Unspecified Escherichia coli [E. coli] as the cause of diseases classified elsewhere; I25.10 Atherosclerotic heart disease of native coronary artery without angina pectoris; I13.0 Hypertensive heart and chronic kidney disease with heart failure and stage 1 through stage 4 chronic kidney disease, or unspecified chronic kidney disease; E11.22 Type 2 diabetes mellitus with diabetic chronic kidney disease; N18.30 Chronic kidney disease, stage 3 unspecified; I50.22 Chronic systolic (congestive) heart failure; J44.9 Chronic obstructive pulmonary disease, unspecified; N40.0 Benign prostatic hyperplasia without lower urinary tract symptoms; M10.9 Gout, unspecified; M19.93 Secondary osteoarthritis, unspecified site; K21.9 Gastro-esophageal reflux disease without esophagitis; Z16.12 Extended spectrum beta lactamase (ESBL) resistance; Z79.01 Long term (current) use of anticoagulants; Z79.02 Long term (current) use of antithrombotics/antiplatelets; Z79.4 Long term (current) use of insulin; Z79.84 Long term (current) use of oral hypoglycemic drugs; Z79.899 Other long term (current) drug therapy; Z88.5 Allergy status to narcotic agent; Z88.8 Allergy status to other drugs, medicaments and biological substances; Z95.2 Presence of prosthetic heart valve
CPT/HCPCS: 96374; J1335

== ENCOUNTER 2025-05-30 00:48 | Day surgery (SDC) | payer MEDICARE, OTHER ==
[~2025-05-30 00:48] MED LIST changes: -Ertapenem Sodium 1,000 MG in NS 50 ML IV SCH
[2025-05-30] MEDS ORDERED: Ertapenem Sodium 1,000 MG in NS 50 ML IV SCH (01:00)
[2025-05-30 10:34] VITALS: BP 128/72
== END 2025-05-30 10:58 | disposition home or self-care (01) ==
LOC: ATC 00:48
DX: N39.0 Urinary tract infection, site not specified (principal); R78.81 Bacteremia; B96.20 Unspecified Escherichia coli [E. coli] as the cause of diseases classified elsewhere; I25.10 Atherosclerotic heart disease of native coronary artery without angina pectoris; I13.0 Hypertensive heart and chronic kidney disease with heart failure and stage 1 through stage 4 chronic kidney disease, or unspecified chronic kidney disease; E11.22 Type 2 diabetes mellitus with diabetic chronic kidney disease; N48.30 Priapism, unspecified; I50.22 Chronic systolic (congestive) heart failure; J44.9 Chronic obstructive pulmonary disease, unspecified; N40.0 Benign prostatic hyperplasia without lower urinary tract symptoms; M10.9 Gout, unspecified; M19.93 Secondary osteoarthritis, unspecified site; K21.9 Gastro-esophageal reflux disease without esophagitis; Z16.12 Extended spectrum beta lactamase (ESBL) resistance; Z79.01 Long term (current) use of anticoagulants; Z79.02 Long term (current) use of antithrombotics/antiplatelets; Z79.4 Long term (current) use of insulin; Z79.84 Long term (current) use of oral hypoglycemic drugs; Z79.899 Other long term (current) drug therapy; Z88.5 Allergy status to narcotic agent; Z88.8 Allergy status to other drugs, medicaments and biological substances; Z95.2 Presence of prosthetic heart valve
CPT/HCPCS: 96365; J1335

== ENCOUNTER 2025-05-31 01:32 | Day surgery (SDC) | payer MEDICARE, OTHER ==
[2025-05-31] MEDS ORDERED: Ertapenem Sodium 1,000 MG in NS 50 ML IV SCH (06:00)
[2025-05-31 10:26] VITALS: BP 111/73
== END 2025-05-31 10:53 | disposition home or self-care (01) ==
LOC: ATC 01:32
DX: N39.0 Urinary tract infection, site not specified (principal); R78.81 Bacteremia; B96.20 Unspecified Escherichia coli [E. coli] as the cause of diseases classified elsewhere; I25.10 Atherosclerotic heart disease of native coronary artery without angina pectoris; I13.0 Hypertensive heart and chronic kidney disease with heart failure and stage 1 through stage 4 chronic kidney disease, or unspecified chronic kidney disease; E11.22 Type 2 diabetes mellitus with diabetic chronic kidney disease; N18.30 Chronic kidney disease, stage 3 unspecified; I50.22 Chronic systolic (congestive) heart failure; J44.9 Chronic obstructive pulmonary disease, unspecified; K21.9 Gastro-esophageal reflux disease without esophagitis; M10.9 Gout, unspecified; N40.0 Benign prostatic hyperplasia without lower urinary tract symptoms; Z16.12 Extended spectrum beta lactamase (ESBL) resistance; Z16.19 Resistance to other specified beta lactam antibiotics; Z79.01 Long term (current) use of anticoagulants; Z79.02 Long term (current) use of antithrombotics/antiplatelets; Z79.4 Long term (current) use of insulin; Z79.84 Long term (current) use of oral hypoglycemic drugs; Z79.899 Other long term (current) drug therapy; Z88.5 Allergy status to narcotic agent; Z88.8 Allergy status to other drugs, medicaments and biological substances; Z95.2 Presence of prosthetic heart valve
CPT/HCPCS: 96365; J1335